=== PATIENT | female | born 1950 | race Caucasian/White ===

== ENCOUNTER 2023-06-19 16:40 | Emergency (ER) | payer MEDICARE, MEDICAID ==
[~2023-06-19] VITALS: Ht 165.1 cm; Wt 60.0 kg
[2023-06-19 16:35] VITALS: PULSE 114; RESP 20
[2023-06-19 16:49] VITALS: O2SAT 90
[2023-06-19] MEDS ORDERED: PROPOFOL 10MG/ML 100ML 100 ML IV ONE (17:00)
[2023-06-19] MEDS ORDERED: PIPERACILLIN/TAZO 3.375G/50ML 50 ML IV ONE (17:00)
[2023-06-19] MEDS ORDERED: NOREPINEPHRINE 8MG/250ML PMX 250 ML IV ONE ×3 (17:15→20:45)
[2023-06-19 17:46] LABS: HEMATOCRIT. 35.1 % (36.0-48.0); HEMOGLOBIN. 10.8 g/dL (12.0-16.0); MEAN CORPUSCULAR HEMOGLOBIN 33.6 pg (28.0-32.0); MEAN CORPUSCULAR HGB CONC 30.9 g/dL (31.0-37.0); MEAN CORPUSCULAR VOLUME 108.8 fL (81.0-99.0); MEAN PLATELET VOLUME 10.2 fl (7.4-10.4); PLATELET 87 x1000/uL (130-400); RED BLOOD CELL COUNT 3.22 mill/uL (4.2-5.4); RED CELL DISTRIBUTION WIDTH 16.2 % (11.6-14.6)
[2023-06-19 17:57] LABS: DIFFERENTIAL COMMENT 1
[2023-06-19 17:59] LABS: ALANINE AMINOTRANSFERASE 13 IU/L (10-49); ALBUMIN 2.8 g/dL (3.2-4.8); ASPARTATE AMINOTRANSFERASE 41 IU/L (<34); BILIRUBIN TOTAL 0.5 mg/dL (0.1-1.0); CARBON DIOXIDE 20 mEq/L (21-32); CHLORIDE 100 mEq/L (98-107); CREATINE KINASE 77 IU/L (34-145); CREATININE 3.8 mg/dL (0.6-1.0); GLUCOSE 68 mg/dL (70-105); LACTATE DEHYDROGENASE 361 IU/L (120-246); POTASSIUM 3.5 mEq/L (3.5-5.1); SODIUM 138 mEq/L (136-145); UREA NITROGEN BLOOD 25 mg/dL (9-23)
[2023-06-19] MEDS ORDERED: VASOPRESSIN 20 UNIT in SODIUM CHLORIDE 0.9% 99 ML IV PRN ×4 (18:00)
[2023-06-19] MEDS ORDERED: EPINEPHRINE 5 MG in SODIUM CHLORIDE 0.9% 245 ML IV PRN ×4 (18:00)
[2023-06-19 18:11] LABS: TROPONIN I HIGH SENSITIVITY 261 ng/L (3.0-34)
[2023-06-19 18:27] LABS: BG BASE EXCESS -10.7 mmol/L (-2.0-2.0); BG DEOXYHEMOGLOBIN 5.2 % (0.0-5.0); BG FRACTION INSPIRED OXYGEN 80; BG HCO3 ACT 15.9 mmol/L (22.0-26.0); BG METHEMOGLOBIN 0.3 % (0.0-1.5); BG OXYGEN SATURATION 94.8 % (92.0-98.5); BG OXYHEMOGLOBIN 94.5 % (94.0-97.0); BG PCO2 38.1 mmHg (35.0-45.0); BG PH 7.239 (7.350-7.450); BG SAMPLE SITE LEFT FEMORAL; BG TOTAL HEMOGLOBIN 12.1 g/dL (12.0-18.0); BG TOTAL RESPIRATORY RATE 22 b/min; BG VENT MODE VENT - AC
[2023-06-19 19:00] VITALS: BP 108/31
[2023-06-19 20:08] VITALS: PULSE 118; RESP 24
[2023-06-19 20:35] LABS: ANISOCYTOSIS 1+; NUCLEATED RED BLOOD CELLS 8 /100 WBC; PLATELET ESTIMATE DECREASED
[2023-06-19 20:55] LABS: INR 1.6; PROTHROMBIN TIME 16.6 sec (9.6-11.0)
[2023-06-19 21:24] LABS: LACTIC ACID 10.3 mmol/L (0.4-2.0)
[2023-06-19 21:50] VITALS: PULSE 109; RESP 27
[2023-06-19] MEDS ORDERED: EPINEPHRINE 0.1MG/ML (1:10,000) 10ML SYR ONE (23:28)
[2023-06-19] MEDS ORDERED: EPINEPHRINE 10 MG in SODIUM CHLORIDE 0.9% 240 ML IV PRN (23:30)
[2023-06-19 23:52] VITALS: PULSE 106; RESP 20
[2023-06-20] MEDS ORDERED: ONDANSETRON HCL 4MG/2ML INJ IV PRN (01:30)
[2023-06-20] MEDS ORDERED: MAGNESIUM/ALUMINUM HYDROXIDE/SIMETHICONE 30ML UDC PO PRN (01:30)
[2023-06-20] MEDS ORDERED: ACETAMINOPHEN 325MG TABLET PO PRN ×2 (01:30)
[2023-06-20] MEDS ORDERED: IPRATROPIUM/ALBUTEROL 0.5-3(2.5)MG/3ML NEB HHN PRN (01:30)
[2023-06-20] MEDS ORDERED: PIPERACILLIN/TAZOBACTAM 3.375 G in DEXTROSE 5% WATER 50 ML IV SCH (02:00)
[2023-06-20] MEDS ORDERED: VANCOMYCIN 1.25GM PMX (XELLIA) 250 ML IV NR (02:30)
== END 2023-06-20 00:25 ==
LOC: ER 16:40 → EDBEDREQ 20:41 → ER 06-20 00:25
DX: A41.9 Sepsis, unspecified organism (principal); R65.21 Severe sepsis with septic shock; I46.9 Cardiac arrest, cause unspecified; J96.01 Acute respiratory failure with hypoxia; E87.20 Acidosis, unspecified; I21.3 ST elevation (STEMI) myocardial infarction of unspecified site; I12.0 Hypertensive chronic kidney disease with stage 5 chronic kidney disease or end stage renal disease; E11.22 Type 2 diabetes mellitus with diabetic chronic kidney disease; N18.6 End stage renal disease; N17.9 Acute kidney failure, unspecified
CPT/HCPCS: 36556; 80053; 82550; 83880; 83605; 83615; 83690; 85025; 85384; 85610; 86850; 86900; 86901; 87040; 87186; 84484; 87804 ×2; 87077; 36415; 84145; 82805; 82375; 92950 ×2; 31500; 99291; 93005; 96365; 36600; 71045; J3490 ×3; J2704; J7050; 94002; 99285; J2543; J3370; J7060